=== PATIENT | female | born 1935 | race Caucasian/White ===

== ENCOUNTER 2017-09-08 13:08 | Day surgery (SDC) | payer MEDICARE, OTHER, SELFPAY ==
--- NOTE | 2017-09-08 | PATH_ITS ---
[facility] Accession Number: [id number] . 01 Material submitted: . BODY OF ANTRUM GASTRIC BIOPSY . 02 Diagnosis: Stomach, Biopsies: Antral and body-type mucosa with mild chronic gastritis. Negative for Helicobacter by immunohistochemistry. Negative for intestinal metaplasia. Negative for dysplasia and malignancy. [facility]/09/10/2017 . 02 Electronically signed: . Lurdes Dunbar MD, Pathologist NPI- [id number] . 01 Gross description: . Received in one formalin-filled container labeled with the patient's name and labeled body of antrum gastric, are four 0.1-0.3 cm portions of tissue, entirely submitted in one cassette. ([id number]) /FRR . 02 Microscopic: . An immunohistochemical stain was performed to evaluate for Helicobacter organisms and is negative. The control stain shows appropriate reactivity. . * This test was developed and its performance characteristics determined by [facility]. It has not been cleared or approved by the U.S. Food and Drug Administration. The FDA has determined that such clearance or approval is not necessary. This test is used for clinical purposes. It should not be regarded as investigationalor for research. . 02 Pathologist provided ICD-10: R10.9 . 02 CPT . 722424, [id number] Performed at: 01 [facility] [address], [place], [place] [id number] MD Alvaro Braxton MD Phone: [phone] Performed at: 02 [facility] [place] [address] [place], [place] [id number] MD Lokesh Marrufo MD Phone: [phone]
[2017-09-08] MEDS: SODIUM CHLORIDE 0.9% 1,000 ML 70 ML IV (14:05)
[2017-09-08 14:18] VITALS: BP 136/64; PULSE 69; RESP 16; TEMP 37.1; O2SAT 98; BMI 23.1
--- NOTE | 2017-09-08 14:45 | P.HP_ITS ---
History of Present Illness Date Patient Seen: 09/08/17 Chief complaint: [id number] EKG W/POSS BX Narrative: The patient is a 81-year-old female who is at our office for early satiety and GERD symptoms. 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 I had last seen the patient on August 10, 2017 at my office. After increasing her PPI to b.i.d. dosing the patient has had some improvement of her symptoms. Patient History Family & Social History Social History: household members spouse Meds Home Medications Medication Instructions Recorded Confirmed Type calcium carbonate 500 mg PO Q4-6H PRN 09/08/17 09/08/17 History cholecalciferol (vitamin D3) 2,000 unit PO DAILY 09/08/17 09/08/17 History [Vitamin D3] ibuprofen 200 mg PO Q4-6H PRN MDD 1500 09/08/17 09/08/17 History losartan [Cozaar] 100 mg PO DAILY 09/08/17 09/08/17 History omeprazole 40 mg PO DAILY 09/08/17 09/08/17 History Allergies Allergy/AdvReac Type Severity Reaction Status Date / Time ACETAMINOPHEN Allergy Unknown RIGHT Uncoded 05/19/17 12:04 CHEEK TINGLING/JAW PAIN CIPROFLOXACIN Allergy Unknown RIGHT Uncoded 05/19/17 12:04 CHEEK TINGLING/JAW PAIN CONTRAST MEDIA, IODINE Allergy Unknown RIGHT Uncoded 05/19/17 12:04 RELATED CHEEK TINGLING/JAW PAIN From VISTARIL Allergy Unknown RIGHT FACE Uncoded 05/19/17 12:04 TINGLING TO EAR WITH JAW PAIN LATEX Allergy Unknown RASH/ITCHIN Uncoded 05/19/17 12:04 G NITROFURANTOIN Allergy Unknown RIGHT FACE Uncoded 05/19/17 12:04 TINGLING/JAW PAIN STERI STRIPS Allergy Unknown RASH Uncoded 05/19/17 12:04 Review of Systems Review of Systems All systems reviewed & are unremarkable except as noted in HPI and below Exam Vital Signs (past 8 hours): - 09/08/17 14:18 Temperature 98.7 F Pulse Rate 69 Respiratory Rate 16 Blood Pressure 136/64 H Pulse Oximetry 98 Oxygen Delivery Method Room Air Narrative Exam Narrative: General: Patient is well developed, not in apparent distress Cardiovascular: Regular rate and rhythm, no murmurs, rubs, or gallops; no evidence of edema; no palpable abdominal aortic aneurysm Gastrointestinal: Normoactive bowel sounds, soft, nontender, nondistended, no rebound tenderness, no hepatosplenomegaly, no evidence of hernia Assessment & Plan Plan: Assessment/Plan Narrative: 81-year-old female with a history of early satiety for several months of unclear etiology. Differential diagnosis includes gastric outlet obstruction , GE junction obstruction due to her esophageal hernia or esophageal stenosis. Plan is for EGD to evaluate her anatomy and for any mucosal abnormalities. Regarding the procedure(s), the risks and potential complications, benefits, and alternatives (including not doing the procedure) were discussed with the patient. The risks include but are not limited to bleeding, infection, perforation which may require surgical intervention, missed lesions, and adverse reactions to sedative medicines. After a question and answer period, the patient agreed to proceed with the procedure(s) and gives informed consent.
--- NOTE | 2017-09-08 14:45 | PM.OP.ENDO ---
Operative Date/Time/Diagnoses Date of procedure: 09/08/17 Procedure Notes Procedure in detail: Surgeon: Juanjo Miranda MD Procedure: Esophagogastroduodenoscopy with biopsy Preoperative diagnosis: Early satiety, GERD Postoperative diagnosis: Gastritis, small hiatal hernia, normal esophagus Medications: Conscious sedation using 4 mg IV of Midazolam and 100 mcg IV of Fentanyl; Cetacaine spray Preanesthesia Assessment An H and P was performed/updated and the Px?s ASA class is 2. The procedure was discussed in detail with the patient. The potential risks and complications including infection, bleeding, missed lesions, perforation, need for surgery in case of perforation, prolonged hospital stay, and were explained. A brief question and answer period was allotted and once all questions were answered, informed consent was obtained. The patient was brought back to the procedure room and placed on standard monitoring. The patient?s vital signs were monitored continuously throughout the entire procedure. Prior to starting, a timeout was performed to confirm the patient?s identity, allergies, medications, and procedure. Procedure in detail The patient was placed in left lateral decubitus position and a bite block was inserted. Once adequate sedation was obtained the tip of the upper endoscope was placed in the mouth and advanced under direct visualization without any difficulty into the esophagus. Examination of the entire esophagus revealed no mucosal abnormalities. There was no evidence of esophageal stricture, mass, or ulceration. The endoscope was advanced to the 2nd portion of the duodenum and the entire examined duodenum showed no mucosal abnormalities. The endoscope was brought back to the stomach where there was note of inflammation in the antrum correct characterized by erythema and edema. Biopsies were taken to rule out H pylori. Retroflexion was performed in the stomach which revealed no lesions on the incisura and fundus. There was note of a small hiatal hernia with no evidence of paraesophageal hernia. The patient tolerated the procedure well and will be brought back to the recovery area to be discharged once criteria are met. The total procedure time from initial sedation was 12 min. Complications There were no complications and estimated blood loss was minimal. Recommendations: Resume previous diet Anti-reflux measures at all times Continue outPx medications. Wean omeprazole back down to lowest dose possible or consider changing to ranitidine twice a day to control symptoms Follow up pathology results Office follow up with me in 2 months if symptoms persist An emergency contact number was given to the patient for any complications related to the procedure
[2017-09-08] MEDS: MIDAZOLAM 5 MG/5 ML VIAL IV (15:08)
[2017-09-08] MEDS: fentaNYL 250 MCG/5 ML INJ IV (15:09)
--- NOTE | 2017-09-08 15:09 | PM.DS.1 ---
History of Present Illness Chief complaint: [id number] EKG W/POSS BX Narrative: The patient is a 81-year-old female who is at our office for early satiety and GERD symptoms. 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 I had last seen the patient on August 10, 2017 at my office. After increasing her PPI to b.i.d. dosing the patient has had some improvement of her symptoms. Discharge Providers Primary care physician: Amari Henson MD Discharge provider: Juanjo Miranda MD Exam Vital Signs (past 8 hours): - 09/08/17 14:18 Temperature 98.7 F Pulse Rate 69 Respiratory Rate 16 Blood Pressure 136/64 H Pulse Oximetry 98 Oxygen Delivery Method Room Air Narrative Exam Narrative: General: Patient is well developed, not in apparent distress Cardiovascular: Regular rate and rhythm, no murmurs, rubs, or gallops; no evidence of edema; no palpable abdominal aortic aneurysm Gastrointestinal: Normoactive bowel sounds, soft, nontender, nondistended, no rebound tenderness, no hepatosplenomegaly, no evidence of hernia Discharge Plan Discharge Plan Patient Disposition: Home, Self-Care Discharge comment: Antireflux measures at all times Discharge Med Rec/Prescriptions Prescriptions: Continue ibuprofen 200 mg Capsule 200 mg PO Q4-6H MDD 1500 PRN (Reason: Abdominal Discomfort) RF: 0 omeprazole 40 mg Capsule,Delayed Release(Dr/Ec) 40 mg PO DAILY RF: 0 calcium carbonate 500 mg calcium (1,250 mg) Tablet 500 mg PO Q4-6H PRN (Reason: Abdominal Discomfort) RF: 0 losartan [Cozaar] 100 mg Tablet 100 mg PO DAILY RF: 0 cholecalciferol (vitamin D3) [Vitamin D3] 2,000 unit Capsule 2,000 unit PO DAILY RF: 0 Discharge Orders: Discharge (Order); Ordered 09/08/17 Ordered By: Juanjo Miranda Provider Discharge Instructions Diet: Diet as Tolerated Visit Report/Discharge Packet Stand Alone Forms: Surgery Discharge Discharge Data Primary Care Provider: Buddy Henson Attending Provider: Juanjo Miranda
[2017-09-08 15:12] VITALS: BP 104/54; PULSE 69; RESP 14; TEMP 36.6; O2SAT 95
[2017-09-08 15:17] VITALS: BP 103/37; PULSE 73; RESP 12; O2SAT 95
[2017-09-08 15:21] VITALS: BP 113/61; PULSE 71; RESP 10; O2SAT 95
[2017-09-08 15:30] VITALS: BP 118/66; PULSE 64; RESP 20; TEMP 36.4; O2SAT 96
== END 2017-09-08 15:35 | disposition home or self-care (01) ==
PROVIDERS: PCP Family Medicine; Visit Provider Internal Medicine Gastroenterology
PROC: 0DJ08ZZ Inspection of Upper Intestinal Tract, Via Natural or Artificial Opening Endoscopic (ICD-10-PCS; CPT 43235; principal; 2017-09-08 14:30)
DX: K29.70 Gastritis, unspecified, without bleeding (principal); R68.81 Early satiety; K44.9 Diaphragmatic hernia without obstruction or gangrene; I10 Essential (primary) hypertension
CPT/HCPCS: 43239; J2250; J3010

== ENCOUNTER → 2024-06-25 08:56 | Outpatient (CLI) | payer MEDICARE, OTHER, SELFPAY ==
--- NOTE | 2024-06-25 | DI.MRI.S_ITS ---
PROCEDURE: MR SHOULDER LT WO CON INDICATIONS: Rotator cuff tendinitis TECHNIQUE: Noncontrast oblique coronal T2 fast spin echo with fat saturation, oblique sagittal T1 spin echo and T2 fast spin echo with fat saturation, axial T1 spin echo and T2 fast spin echo with fat saturation through the shoulder. COMPARISON: None. FINDINGS: Image quality: Excellent. Rotator cuff: There is full-thickness tearing of the mid and anterior supraspinatus tendon. Moderate grade intrasubstance and articular surface tearing of the posterior supraspinatus and anterior infraspinatus tendons at the humeral insertion sites extending to the musculotendinous junction. There is moderate grade articular surface and intrasubstance tearing of the mid subscapularis tendon at the humeral insertion site extending to the musculotendinous junction. Teres minor is intact. No rotator cuff atrophy. Bones and bursae: No bone marrow contusions or fractures. There is an incompletely visualized, ill-defined region of heterogeneous low T1/high STIR signal intensity within the proximal humerus, measuring at least 62 mm craniocaudal. Mild acromioclavicular joint degeneration. The acromion demonstrates conventional anatomy, without an os acromiale. No pathologic subacromial-subdeltoid or subcoracoid bursal fluid is present. Capsule and soft tissues: Labrum is intact. There is a moderate glenohumeral joint effusion. There is an intra-articular loose body within the infra glenoid recess measuring 9 mm. The long head of the biceps tendon demonstrates normal location and morphology. The rotator interval appears normal, without fibrosis. The coracohumeral ligament is normal in thickness. IMPRESSION: 1. Full-thickness and partial-thickness tearing of the supraspinatus tendon. Partial-thickness tearing of subscapularis and infraspinatus tendons. 2. Incompletely visualized proximal humeral focus, suggestive of an infarct. Further assessment with plain film examination, as well as MRI of the humerus with and without intravenous contrast is recommended. 3. Mild acromioclavicular joint osteoarthritis. 4. Glenohumeral joint effusion with intra-articular loose body. Dictated by: Fiorella Triana M.D. on 06/26/2024 at 11:22 Approved by: Fiorella Triana M.D. on 06/26/2024 at 11:25
== END ==
LOC: MRI 08:58
PROVIDERS: PCP Physician Assistant Medical; Referring Provider Orthopaedic Surgery; Visit Provider Orthopaedic Surgery
DX: M75.122 Complete rotator cuff tear or rupture of left shoulder, not specified as traumatic (principal); M19.012 Primary osteoarthritis, left shoulder; M25.412 Effusion, left shoulder; M24.012 Loose body in left shoulder
CPT/HCPCS: 73221

== ENCOUNTER → 2024-08-24 14:28 | Outpatient (CLI) | payer MEDICARE, OTHER, SELFPAY ==
[2024-08-24 15:26] LABS: Add Manual Diff / Slide Review NO; Hematocrit 45.3 % (36-46); Hemoglobin 15.1 g/dL (12.0-16.0); Lymphocytes Absolute Auto 1200 /uL (1100-4500); Mean Corpuscular HGB Conc 33.2 % (30-36); Mean Corpuscular Hemoglobin 29.2 PG (26-34); Mean Corpuscular Volume 88.1 fL (80-100); Platelet Count 169 X10^3/uL (150-400)
[2024-08-24 15:52] LABS: Alanine Aminotransferase 23 IU/L (<35); Albumin 4.4 g/dL (3.5-5.0); Albumin Globulin Ratio 2.0 (1.0-2.8); Alkaline Phosphatase 61 U/L (38-126); Blood Urea Nitrogen 20 mg/dL (7-17); Calcium 9.6 mg/dL (8.4-10.2); Carbon Dioxide 29 mmol/L (22-32); Chloride 100 mmol/L (98-107); Estimated Glomerular Filt Rate > 60 mL/min (>60); Globulin 2.2 g/dL (1.7-4.1); Glucose 106 mg/dL (70-99); HEMOLYSIS < 15 (0-50); Potassium 4.4 mmol/L (3.4-5.1); Sodium 135 mmol/L (137-145); Total Protein 6.6 g/dL (6.3-8.2)
== END ==
PROVIDERS: PCP Physician Assistant Medical; Referring Provider Physician Assistant Medical; Visit Provider Ophthalmology
DX: H53.123 Transient visual loss, bilateral (principal); M31.6 Other giant cell arteritis
CPT/HCPCS: 36415; 80053; 85025; 85651; 86038; 86140; 86430

== ENCOUNTER → 2024-09-14 10:22 | Outpatient (CLI) | payer MEDICARE, OTHER, SELFPAY ==
--- NOTE | 2024-09-14 10:23 | DI.CT.S_ITS ---
PROCEDURE: CT SHOULDER LEFT WITHOUT CON INDICATIONS: Left shoulder pain. TECHNIQUE: Noncontrast 0.75 mm thick sections acquired from the acromioclavicular joint to the inferior scapula, with coronal and sagittal reformatting. COMPARISON: [facility], CR, XR SHOULDER 2+ VIEWS LEFT, 07/26/2024, 13:30. [facility], MR, MR SHOULDER LT WO CON, 06/25/2024, 9:35. FINDINGS: Image quality: Excellent. Bones: Moderate acromioclavicular joint osteoarthritic changes are seen with joint space narrowing, subchondral sclerosis and small marginal osteophyte formation. Moderate glenohumeral joint osteoarthritic changes also seen. Superior migration of humeral head in relation to glenoid is noted with significant narrowing subacromial space. No acute fracture or dislocation. No suspicious intraosseous lesions. The visualized left ribs are intact. Soft tissues: Moderate joint effusion is seen, no calcified intra-articular loose bodies. There is suggestion of high-grade to full-thickness rupture involving distal supraspinatus at its insertion on humeral head. Moderate supraspinatus muscle atrophy is seen on sagittal images. No abnormal soft tissue calcifications. No soft tissue mass or drainable fluid collection. No axillary lymphadenopathy. Visualized left lung field is clear. IMPRESSION: 1. Study is for potential surgical planning. 2. Superior migration of humeral head with near complete loss of subacromial space concerning for full-thickness supraspinatus tendon rupture. Moderate supraspinatus muscle atrophy. 3. Moderate left shoulder joint osteoarthritis. No fracture or dislocation. No suspicious bony lesions. 4. Moderate joint effusion and subacromial subdeltoid bursal fluid, no calcified intra-articular loose bodies. No soft tissue mass or drainable fluid collection. Dictated by: Roque Flores M.D. on 09/15/2024 at 8:46 Approved by: Roque Flores M.D. on 09/15/2024 at 8:52
== END ==
LOC: CT 10:23
PROVIDERS: PCP Physician Assistant Medical; Referring Provider Orthopaedic Surgery; Visit Provider Orthopaedic Surgery
DX: S46.012D Strain of muscle(s) and tendon(s) of the rotator cuff of left shoulder, subsequent encounter (principal); M62.512 Muscle wasting and atrophy, not elsewhere classified, left shoulder; M19.012 Primary osteoarthritis, left shoulder; M25.412 Effusion, left shoulder; X58.XXXD Exposure to other specified factors, subsequent encounter
CPT/HCPCS: 73200